=== PATIENT | female | born 1960 | race Caucasian/White ===

== ENCOUNTER 2023-06-01 06:36 | Observation (INO) | payer BC ==
[2023-06-01] MEDS ORDERED: ACETAMINOPHEN 1000 MG/100 ML BAG IVPB ONE (07:51)
[2023-06-01 08:42] LABS: BASO % 0.5 % (0-2.0); EOS % 0.4 % (0-4.5); HEMATOCRIT 31.6 % (32.4-45.2); HEMOGLOBIN 10.1 GM/dL (10.7-15.3); LYMPH % 3.5 % (8-40); MCH 20.1 pg (25.7-33.7); MEAN CELL VOLUME 62.8 fl (80-96); MEAN PLT VOLUME 10.1 fl (7.5-11.1); MONO % 6.2 % (3.8-10.2); NEUT % 89.4 % (42.8-82.8); PLATELET COUNT 520 10^3/uL (134-434); RBC 5.03 M/mm3 (3.60-5.2); RDW 18.4 % (11.6-15.6); WHITE BLOOD COUNT 12.1 K/mm3 (4.0-10.0)
[2023-06-01 08:44] LABS: INR 0.97 (0.83-1.09); PROTHROMBIN TIME (PATIENT) 11.3 SEC (9.7-13.0)
[2023-06-01 08:47] LABS: ACTIVATED PTT 25.5 SECONDS (25.2-36.5)
[2023-06-01 09:01] LABS: ALBUMIN 3.2 g/dl (3.4-5.0); BLOOD UREA NITROGEN 18.8 mg/dL (7-18); CALCIUM 7.9 mg/dL (8.5-10.1)
[2023-06-01 09:04] LABS: CREATININE 0.8 mg/dL (0.55-1.3)
[2023-06-01 09:07] LABS: BILIRUBIN,TOTAL 0.6 mg/dL (0.2-1)
[2023-06-01 09:24] LABS: PH,URINE 5.5 (5.0-8.0); URINE APPEARANCE CLEAR; URINE BILIRUBIN NEGATIVE (NEGATIVE); URINE COLOR YELLOW; URINE GLUCOSE (UA) NEGATIVE (NEGATIVE); URINE KETONE TRACE (NEGATIVE); URINE LEUK ESTERASE NEGATIVE (NEGATIVE); URINE NITRITE NEGATIVE (NEGATIVE); URINE PROTEIN NEGATIVE (NEGATIVE); URINE UROBILINOGEN 0.2 mg/dL (0.2-1.0)
[2023-06-01 09:55] LABS: ANISOCYTOSIS 3+; MACROCYTOSIS 0
[2023-06-01 10:30] LABS: PLATELET ESTIMATE INCREASED
[2023-06-01] MEDS: ACETAMINOPHEN 1000 MG/100 ML BAG IVPB PRN (16:56)
[2023-06-01] MEDS ORDERED: ROSUVASTATIN CA 5 MG TABLET ONE (21:37)
[2023-06-01] MEDS ORDERED: ROSUVASTATIN CA 5 MG TABLET PO SCH (22:00)
[2023-06-01 23:51] VITALS: BMI 21.9
[2023-06-02] MEDS: ACETAMINOPHEN 1000 MG/100 ML BAG IVPB PRN ×2 (02:31→13:33)
[2023-06-02 06:26] VITALS: RESP 18
[2023-06-02] MEDS ORDERED: LEVOTHYROXINE NA 200 MCG TABLET PO SCH (07:00)
[2023-06-02] MEDS ORDERED: LACTOBACILLUS ACIDOPHILUS 1 TABLET PO SCH (10:00)
[2023-06-02] MEDS ORDERED: ENOXAPARIN NA (PORCINE) 40 MG/0.4 ML DISP.SYRIN SQ SCH (10:00)
[2023-06-02] MEDS ORDERED: CHOLECALCIFEROL (VIT D3) 1,000 UNIT (25 MCG) TABLET PO SCH (10:00)
[2023-06-02 10:19] LABS: POTASSIUM 3.7 mmol/L (3.5-5.1)
[2023-06-02 10:28] LABS: ALBUMIN 2.7 g/dl (3.4-5.0); BLOOD UREA NITROGEN 13.1 mg/dL (7-18); MAGNESIUM 2.2 mg/dL (1.8-2.4)
[2023-06-02 10:30] LABS: CREATININE 0.7 mg/dL (0.55-1.3)
[2023-06-02 10:31] LABS: BILIRUBIN,TOTAL 0.5 mg/dL (0.2-1)
[2023-06-02 10:32] LABS: TOT PROT 5.3 g/dl (6.4-8.2)
[2023-06-02 10:45] LABS: BASO % 0.6 % (0-2.0); EOS % 0.8 % (0-4.5); HEMATOCRIT 26.8 % (32.4-45.2); HEMOGLOBIN 8.8 GM/dL (10.7-15.3); LYMPH % 3.4 % (8-40); MCH 20.6 pg (25.7-33.7); MCHC 32.9 g/dl (32.0-36.0); MEAN CELL VOLUME 62.5 fl (80-96); MEAN PLT VOLUME 11.2 fl (7.5-11.1); NEUT % 85.2 % (42.8-82.8); PLATELET COUNT 460 10^3/uL (134-434); RDW 18.8 % (11.6-15.6); WHITE BLOOD COUNT 6.6 K/mm3 (4.0-10.0)
[2023-06-02 15:14] VITALS: BP 107/46; PULSE 90; TEMP 98.2
== END 2023-06-02 16:15 | disposition home or self-care (01) ==
LOC: JER 06:36 → INTOOBSV 13:58 → JERBED 13:58 → UNDOADMOB 13:58 → JERBED 16:37 → J7W 23:40
PROVIDERS: ADMIT Internal Medicine; ATTEND Nurse Practitioner
PROC: 3E033NZ Introduction of Analgesics, Hypnotics, Sedatives into Peripheral Vein, Percutaneous Approach (ICD-10-PCS; principal; 2023-06-01)
PROC: 3E023GC Introduction of Other Therapeutic Substance into Muscle, Percutaneous Approach (ICD-10-PCS; 2023-06-01)
DX: C34.90 Malignant neoplasm of unspecified part of unspecified bronchus or lung (principal); C81.90 Hodgkin lymphoma, unspecified, unspecified site; E03.9 Hypothyroidism, unspecified; E78.5 Hyperlipidemia, unspecified; J95.811 Postprocedural pneumothorax
CPT/HCPCS: 0241U-QW; 36415; 71045-TC-FY; 71275-TC; 80053; 81003; 83735; 84100; 84436; 84443; 84484; 85025; 85610; 85730; 87086; 93005; 93010; 99285-25; G0378; Q9967